=== PATIENT | male | born 1960 | race Caucasian/White ===

== ENCOUNTER 2018-05-25 13:24 | Emergency (ER) | payer OTHER ==
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
[2018-05-25] MEDS ORDERED: ACETAMINOPHEN 325 MG TABLET (FP) PO ONE (13:39)
[2018-05-25] MEDS ORDERED: ACETAMINOPHEN 325 MG TABLET (FP) ONE (13:44)
[2018-05-25 14:17] VITALS: BP 116/88; PULSE 107; TEMP 98.4; BMI 34.2
== END 2018-05-25 15:25 | disposition home or self-care (01) ==
LOC: FER 13:24
DX: R29.898 Other symptoms and signs involving the musculoskeletal system (principal); T14.8XXA Other injury of unspecified body region, initial encounter; Z87.891 Personal history of nicotine dependence; E11.9 Type 2 diabetes mellitus without complications; E78.00 Pure hypercholesterolemia, unspecified
CPT/HCPCS: 73030-TC-RT-FY; 73060-TC-RT-FY; 99281-25

== ENCOUNTER 2018-08-04 13:34 | Emergency (ER) | payer OTHER ==
[2018-08-04 13:52] VITALS: BP 109/74; PULSE 70; TEMP 97.9; BMI 29.8
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
[2018-08-04] MEDS ORDERED: ACETAMINOPHEN INJECTION 100 ML IVPB ONE (19:46)
[2018-08-04] MEDS ORDERED: ACETAMINOPHEN 325 MG TABLET (FP) ONE (19:49)
== END 2018-08-04 14:45 | disposition left against medical advice (07) ==
LOC: JER 13:34
CPT/HCPCS: 70450-TC; 99281-25

== ENCOUNTER 2018-08-04 19:26 | Emergency (ER) | payer OTHER ==
[2018-08-04 19:38] VITALS: TEMP 98.1; BMI 29.8
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
[2018-08-04] MEDS ORDERED: ACETAMINOPHEN 1000 MG/100 ML VIAL (NON FORMULARY) IVPB ONE (19:43)
[2018-08-04] MEDS ORDERED: ACETAMINOPHEN 500 MG TABLET (FP) PO ONE (19:52)
[2018-08-04 20:40] LABS: INR 2.16 (0.83-1.09); PROTHROMBIN TIME (PATIENT) 25.7 SEC (9.7-13.0)
[2018-08-04 20:59] VITALS: BP 104/77; PULSE 122
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
== END 2018-08-04 21:00 | disposition home or self-care (01) ==
LOC: JER 19:26
DX: G50.1 Atypical facial pain (principal); V43.52XA Car driver injured in collision with other type car in traffic accident, initial encounter; Y93.89 Activity, other specified; Y92.410 Unspecified street and highway as the place of occurrence of the external cause; Z87.891 Personal history of nicotine dependence; E78.00 Pure hypercholesterolemia, unspecified; E11.9 Type 2 diabetes mellitus without complications; I48.91 Unspecified atrial fibrillation; Z79.01 Long term (current) use of anticoagulants
CPT/HCPCS: 36415; 70450-TC; 85610; 99281-25

== ENCOUNTER 2020-06-06 09:47 | Emergency (ER) | payer OTHER ==
[2020-06-06 09:59] VITALS: BP 100/61; PULSE 65; TEMP 98; BMI 29.2
--- OUTSIDE RECORDS SUMMARY | 2020-06-06 10:09 | XMS ---
:1960 Author Organization [facility] Support Name Relationship Address Phone [place] [address] KIRA CLARK MOTHER [address] [place] [address] Re-disclosure Warning The records that you are about to access may contain information from federally- assisted alcohol or drug abuse programs. If such information is present, then the following federally mandated warning applies: This information has been disclosed to you from records protected by federal confidentiality rules (42 CFR part 2). The federal rules prohibit you from making any further disclosure of this information unless further disclosure is expressly permitted by the written consent of the person to whom it pertains or as otherwise permitted by 42 CFR part 2. A general authorization for the release of medical or other information is NOT sufficient for this purpose. The Federal rules restrict any use of the information to criminally investigate or prosecute any alcohol or drug abuse patient.The records that you are about to access may contain highly sensitive health information, the redisclosure of which is protected by Article 27-F of the [facility] Public Health law. If you continue you may haveaccess to information: Regarding HIV / AIDS; Provided by facilities licensed or operated by the [facility] Office of Mental Health; or Provided by the [facility] Office for People With Developmental Disabilities. If such information is present, then the following [facility] mandated warning applies: This information has been disclosed to you from confidential records which are protected by state law. State law prohibits you from making any further disclosure of this information without the specific written consent of the person to whom it pertains, or as otherwise permitted by law. Any unauthorized further disclosure in violation of state law may result in a fine or mcfp sentence or both. A general authorization for the release of medical or other information is NOT sufficient authorization for further disclosure. Insurance Providers Payer name Policy type Policy ID Covered Covered alliance party's Policy P js / Coverage alliance party ID relationship to [employer] type [employer] PENDING [id number] SP [id number] WC/NF ONLY
--- NOTE | 2020-06-06 10:42 | PDOC ---
History of Present Illness - General Chief Complaint: Injury Stated Complaint: FALL Time Seen by Provider: 06/06/20 10:25 History Source: Patient Exam Limitations: No Limitations - History of Present Illness Initial Comments: 06/06/20 10:38 Patient is a 60-year-old male with a history of A. fib and hypertension who presents to the ED with complaint of right knee and calf pain after slip and fall while at work. The patient states that he slipped on something on the ground and landed on his back. He states that he feels pain in the lateral aspect of his right knee and in his calf. He denies any numbness or tingling. He denies any difficulty with walking. He took 2 "gelcaps" which he believes were 200 mg just prior to arrival. This medication is likely ibuprofen. He denies any significant pain but he states he does feel sore. He has an allergy/adverse reaction to oxycodone. Past History - Medical History Allergies/Adverse Reactions: Allergies Allergy/AdvReac Type Severity Reaction Status Date / Time oxycodone AdvReac Intermediate Verified 06/06/20 09:53 Home Medications: Ambulatory Orders metFORMIN HCL [Glucophage -] 500 mg PO DAILY 09/23/13 Acetaminophen [Tylenol -] 1,000 mg PO TID PRN #30 tablet 05/25/18 Methocarbamol [Robaxin -] 500 mg PO TID PRN #30 tablet 05/25/18 Metoprolol Succinate 25 mg PO BID 05/25/18 Rivaroxaban [Xarelto -] 20 mg PO DAILY 05/25/18 Cardiac Disorders: Yes (A FIB) COPD: No Diabetes: Yes Hypercholesterolemia: Yes - Surgical History Cardiac Surgery: Yes - Immunization History Immunization Up to Date: No - Psycho-Social/Smoking History Smoking Status: No Smoking History: Never smoked Have you smoked in the past 12 months: No Number of Cigarettes Smoked Daily: 0 If you are a former smoker, when did you quit?: 40 yrs ago - Substance Abuse Hx (Audit-C & DAST Scrn) How often the patient has a drink containing alcohol: Never Score: In Men: 4 or > Positive; In Women: 3 or > Positive: 0 Screen Result (Pos requires Nsg. Audit-10AR): Negative In the last yr the pt used illegal drug/Rx for NonMed reason: No Score: Yes response is considered Positive: 0 Screen Result (Positive result requires Nsg. DAST-10): Negative Review of Systems - Review of Systems Comments:: 06/06/20 10:40 - Review of Systems Able to Perform ROS?: Yes Constitutional: No: Fever, Chills, Loss of Appetite, Night Sweats, Weakness HEENTM: No: Eye Pain, Vision changes, Ear Pain, Throat Pain, Throat Swelling, Mouth Pain, Difficulty Swallowing Respiratory: No: Cough, Shortness of Breath, Wheezing, Sputum Production Cardiac (ROS): No: Chest Pain, Chest Tightness, Palpitations, Irregular Heart Beat, Edema ABD/GI: No: Nausea, Vomiting, Abdominal Pain, Diarrhea : No Dysuria, No Hematuria, No Frequency, No Urgency Musculoskeletal: No: Muscle Pain, Back Pain, Joint Pain, Muscle Weakness, Neck Pain; positive: Right knee and right calf pain Integumentary: No: Lesions, Rash Neurological: No: Headache, Numbness, Tingling, Weakness, Speech Difficulties *Physical Exam - Vital Signs Last Vital Signs Temp Pulse Resp BP Pulse Ox 98 F 65 16 100/61 100 06/06/20 09:54 06/06/20 09:54 06/06/20 09:54 06/06/20 09:54 06/06/20 09:54 - Physical Exam 06/06/20 10:40 - Physical Exam General Appearance: Nourished, Appropriately Dressed, No Distress HEENT: EOMI, Normal Voice, Hearing Grossly Normal Neck: Supple, No Lymphadenopathy (R), No Lymphadenopathy (L), No Rigidity, No Decreased range of motion Respiratory/Chest: Lungs Clear, Normal Breath Sounds. No Respiratory Distress, No Accessory Muscle Use Cardiovascular: Regular Rhythm, Regular Rate, S1, S2 Musculoskeletal: Normal Inspection. No Decreased Range of Motion; no reproducible tenderness to the right calf. No step-off appreciated. Normal Cheema sign. Sensation intact distally. EHL intact. Right knee ROM from 0- 110 degrees actively. Mild reproducible tenderness to the lateral aspect of the left knee. No crepitus appreciated. Extremity: Normal Capillary Refill, Normal Inspection Integumentary: Normal Color, Dry. 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 Plan: -Right knee x-ray ordered -Patient took pain medication just prior to arrival -Will reassess 06/06/20 11:10 The patient has been made aware that his knee x-ray is negative for acute pathology. He can take ibuprofen or Tylenol and can ice his knee to help with swelling and pain. He should follow-up with orthopedics, referral given, for further evaluation and treatment. He understands and agrees this treatment plan and he is stable for discharge. Discharge - Discharge Information Problems reviewed: Yes Clinical Impression/Diagnosis: Right calf pain Right knee pain Qualifiers: Chronicity: acute Qualified Code(s): M25.561 - Pain in right knee Condition: Stable Disposition: HOME - Follow up/Referral Referrals: Hany Oropeza DO [Staff Physician] - - Patient Discharge Instructions Patient Printed Discharge Instructions: DI for Knee Pain Additional Instructions: Ice and elevate your knee. Take Tylenol or ibuprofen for pain. Be sure to follow-up with orthopedics within 1 to 2 days for repeat evaluation. You can weight-bear as you can tolerate. Referral to orthopedics has been given to you although if this happened at work you may have to go through Worker's Compensation. - Post Discharge Activity Work/Back to School Note: Back to Work
== END 2020-06-06 11:18 | disposition home or self-care (01) ==
LOC: JERFT 09:47
DX: M25.561 Pain in right knee (principal); M79.661 Pain in right lower leg
CPT/HCPCS: 73562-TC-RT-FY; 99283-25